=== PATIENT | male | born 1995 | race Caucasian/White ===

== ENCOUNTER 2024-02-27 19:44 | Emergency (ER) | payer SELFPAY ==
[~2024-02-27] VITALS: Ht 172.7 cm; Wt 111.6 kg
[2024-02-28] MEDS: LIDOCAINE 2% MDV 20ML VIAL SC ONE (00:15)
[2024-02-28] MEDS ORDERED: LIDOCAINE 2% MDV 20ML VIAL As Ordered ONE (00:16)
[2024-02-28] MEDS: NEOSPORIN OINT 0.9 GM PKT TOP ONE (00:20)
[2024-02-28] MEDS ORDERED: CEPH500C PO (01:13)
[2024-02-28] MEDS ORDERED: BACI500O8 TOP (01:13)
[2024-02-28 01:17] VITALS: BP 123/82; TEMP 96.8; O2SAT 96
[2024-02-28] MEDS: CEPHALEXIN 500 MG CAP PO ONE (01:17)
== END 2024-02-28 01:23 | disposition home or self-care (01) ==
LOC: M ED 19:44
DX: S61.011A Laceration without foreign body of right thumb without damage to nail, initial encounter (principal); W26.8XXA Contact with other sharp object(s), not elsewhere classified, initial encounter; Y92.009 Unspecified place in unspecified non-institutional (private) residence as the place of occurrence of the external cause; Y93.89 Activity, other specified; Y99.9 Unspecified external cause status; Z79.2 Long term (current) use of antibiotics; Z79.899 Other long term (current) drug therapy

== ENCOUNTER 2024-03-07 11:55 | Emergency (ER) | payer SELFPAY ==
[~2024-03-07] VITALS: Ht 170.2 cm; Wt 107.6 kg
[~2024-03-07 11:55] MED LIST: BACI500O8 TOP; CEPH500C PO
[2024-03-07 11:59] VITALS: BP 132/79; TEMP 98.2; O2SAT 96
== END 2024-03-07 12:44 | disposition home or self-care (01) ==
LOC: M ED 11:55
DX: Z48.02 Encounter for removal of sutures (principal); Z79.2 Long term (current) use of antibiotics

== ENCOUNTER 2024-12-07 15:03 | Emergency (ER) | payer BC, SELFPAY ==
[~2024-12-07] VITALS: Ht 167.6 cm; Wt 106.3 kg
[2024-12-07] MEDS ORDERED: PANT40TA29 PO (19:18)
[2024-12-07] MEDS ORDERED: LEXA1TAB2 (19:18)
[2024-12-07] MEDS ORDERED: LEXA1TAB2 PO (20:07)
[2024-12-07 20:16] VITALS: BP 118/74; TEMP 98.2; O2SAT 97
== END 2024-12-07 20:17 | disposition home or self-care (01) ==
LOC: M ED 15:03
DX: Z76.0 Encounter for issue of repeat prescription (principal); F41.9 Anxiety disorder, unspecified; F32.A Depression, unspecified; F17.200 Nicotine dependence, unspecified, uncomplicated; F12.10 Cannabis abuse, uncomplicated; Z79.899 Other long term (current) drug therapy

== ENCOUNTER 2025-01-24 12:54 | Emergency (ER) | payer BC ==
[~2025-01-24] VITALS: Ht 170.2 cm; Wt 105.0 kg
[~2025-01-24 12:54] MED LIST changes: +LEXA1TAB2; +LEXA1TAB2 PO; +PANT40TA29 PO
[2025-01-24 13:00] VITALS: BP 127/72; TEMP 96.2; O2SAT 97
[2025-01-24] MEDS ORDERED: LEXA1TAB2 PO (17:29)
== END 2025-01-24 17:40 | disposition home or self-care (01) ==
LOC: M ED 12:54
DX: Z76.0 Encounter for issue of repeat prescription (principal); F41.9 Anxiety disorder, unspecified; F32.A Depression, unspecified; Z79.899 Other long term (current) drug therapy